=== PATIENT | female | born 1995 ===

== ENCOUNTER 2018-04-20 10:21 | Emergency (ER) | payer BC ==
[2018-04-20 10:26] VITALS: BMI 21.2
[2018-04-20 10:27] VITALS: RESP 20
--- NOTE | 2018-04-20 11:18 | RAD ---
Date of service: 04/20/2018 HISTORY: Cough COMPARISON: No prior. TECHNIQUE: Chest PA and lateral FINDINGS: LINES AND TUBES: None. LUNG AND PLEURA: There is pulmonary hyperinflation and peribronchial thickening with streaky opacities in the lungs. No lobar pneumonia. No pleural effusion or pneumothorax. HEART AND MEDIASTINUM: The heart is not enlarged. No aortic atherosclerotic calcification present. The hilar and mediastinal contours are within normal limits. SKELETAL STRUCTURES: The bony structures are within normal limits for the patient's age. VISUALIZED UPPER ABDOMEN: Normal. OTHER FINDINGS: None. IMPRESSION: Findings are most compatible with reactive small airway disease/viral/atypical pneumonitis. No lobar pneumonia.
[2018-04-20 11:31] VITALS: BP 117/77; PULSE 70; TEMP 97.8; O2SAT 99
--- NOTE | 2018-04-20 14:22 | C.PDOC ---
History Of Present Illness 22 year old female presents to the ED for evaluation of a dry cough which began one week ago. Patient also reports occasional bloody nose for the same time period. She denies fever, chills, shortness of breath, generalized body aches, known sick contacts or recent travel. Time Seen by Provider: 04/20/18 10:30 Chief Complaint (Nursing): ENT Problem History Per: Patient History/Exam Limitations: no limitations Onset/Duration Of Symptoms: Other (one week ) Current Symptoms Are (Timing): Still Present Associated Symptoms: Cough. denies: Fever, Chills Recent travel outside of the [place]: No Additional History Per: Patient Past Medical History Reviewed: Historical Data, Nursing Documentation, Vital Signs Vital Signs: Last Vital Signs Temp 97.8 F 04/20/18 11:30 Pulse 70 04/20/18 11:30 Resp 20 04/20/18 11:30 BP 117/77 04/20/18 11:30 Pulse Ox 99 04/20/18 11:30 - Medical History PMH: Asthma Surgical History: No Surg Hx Family History: States: Unknown Family Hx - Social History Hx Alcohol Use: No Hx Substance Use: No - Immunization History Hx Tetanus Toxoid Vaccination: No Hx Influenza Vaccination: No Hx Pneumococcal Vaccination: No Review Of Systems Constitutional: Negative for: Fever, Chills ENT: Positive for: Other (occasional bloody nose ) Respiratory: Positive for: Cough. Negative for: Shortness of Breath, Sputum Musculoskeletal: Negative for: Other (generalized body aches ) Physical Exam - Physical Exam Appears: Non-toxic, No Acute Distress Skin: Normal Color, Warm, Dry Head: Atraumatic, Normacephalic Eye(s): bilateral: Normal Inspection Ear(s): Bilateral: Normal Nose: Normal, No Discharge, No Epistaxis, No Septal Hematoma Oral Mucosa: Moist Throat: Normal, No Erythema, No Exudate Neck: Supple Chest: Symmetrical, No Deformity, No Tenderness Cardiovascular: Rhythm Regular, No Murmur Respiratory: Normal Breath Sounds, No Rales, No Rhonchi, No Wheezing Extremity: Normal ROM Neurological/Psych: Oriented x3, Normal Speech, Normal Cognition ED Course And Treatment O2 Sat by Pulse Oximetry: 99 - Other Rad CXR X-Ray: Viewed By Me, Read By Radiologist Interpretation: 04/20/2018. HISTORY: Cough. COMPARISON: No prior. TECHNIQUE: Chest PA and lateral. FINDINGS: LINES AND TUBES: None. LUNG AND PLEURA: There is pulmonary hyperinflation and peribronchial thickening with streaky opacities in the lungs. No lobar pneumonia. No pleural effusion or pneumothorax. HEART AND MEDIASTINUM: The heart is not enlarged. No aortic atherosclerotic calcification present. The hilar and mediastinal contours are within normal limits. SKELETAL STRUCTURES: The bony structures are within normal limits for the patient's age. VISUALIZED UPPER ABDOMEN: Normal. OTHER FINDINGS: None. IMPRESSION: Findings are most compatible with reactive small airway disease/viral/atypical pneumonitis. No lobar pneumonia. Medical Decision Making Medical Decision Making: Impression: 22 year old female with dry cough Plan: * CXR * reassess and disposition Progress: CXR ordered and reviewed. On reassessment, patient is resting comfortably, showing no signs of distress and is stable for discharge. She is advised to follow up with her PMD within 1-2 days for further evaluation and/or return to the ED if symptoms persist or worsen. Disposition - Disposition Referrals: Alfred Estevez, [Non-Staff] - Disposition: HOME/ ROUTINE Disposition Time: 11:20 Condition: GOOD Additional Instructions: ZEB DAWKINS, thank you for letting us take care of you today. The emergency medical care you received today was directed at your acute symptoms. If you were prescribed any medication, please fill it and take as directed. It may take several days for your symptoms to resolve. Return to the Emergency Department if your symptoms worsen, do not improve, or if you have any other problems. Please contact your doctor or call one of the physicians/clinics you have been referred to that are listed on the Patient Visit Information form that is included in your discharge packet. Bring any paperwork you were given at discharge with you along with any medications you are taking to your follow up visit. Our treatment cannot replace ongoing medical care by a primary care provider outside of the emergency department. Thank you for allowing the [facility] team to be part of your care today. Follow up with your primary care doctor in 3-5 days for re-evaluation and further management. Prescriptions: Azithromycin [Zithromax] 250 mg PO DAILY #6 tab Instructions: Atypical Pneumonia (Mycoplasma and Viral) (DC) Forms: [employer] (German) - Clinical Impression Clinical Impression: Atypical pneumonia - Scribe Statement The provider has reviewed the documentation as recorded by the Scribe (Elana Moore) Provider Attestation: All medical record entries made by the Scribe were at my direction and personally dictated by me. I have reviewed the chart and agree that the record accurately reflects my personal performance of the history, physical exam, medical decision making, and the department course for this patient. I have also personally directed, reviewed, and agree with the discharge instructions and disposition.
== END 2018-04-20 11:37 | disposition home or self-care (01) ==
LOC: C.ER 10:21
DX: J18.9 Pneumonia, unspecified organism (principal)

== ENCOUNTER 2018-07-09 14:29 | Emergency (ER) | payer OTHER, BC ==
[2018-07-09 14:29] VITALS: BMI 21.2
[2018-07-09 14:54] VITALS: PULSE 83; RESP 20; O2SAT 100
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
[2018-07-09 17:38] VITALS: BP 115/77; TEMP 97.9
== END 2018-07-09 17:35 | disposition home or self-care (01) ==
LOC: C.ER 14:29
DX: S20.219A Contusion of unspecified front wall of thorax, initial encounter (principal); S29.012A Strain of muscle and tendon of back wall of thorax, initial encounter; V49.40XA Driver injured in collision with unspecified motor vehicles in traffic accident, initial encounter